=== PATIENT | male | born 1960 | race Caucasian/White ===

== ENCOUNTER 2018-09-10 23:10 | Inpatient (IN) | payer OTHER ==
[~2018-09-10] VITALS: Ht 178 cm; Wt 80.6 kg
[~2018-09-10 23:10] MED LIST: CLOP75 PO; LISI5 PO; SIMV10 PO
[2018-09-10 23:25] LABS: Calcium, Ionized (POC) 1.13 mmol/L (1.10-1.46); Chloride (POC) 104 mmol/L (98-108); Creatinine (POC) 0.9 mg/dL (0.8-1.3); Glucose (ISTAT POC) 144 mg/dL (70-99); Hemoglobin (POC) 17.3 g/dL (13.5-17.5); Potassium (POC) 3.7 mmol/L (3.5-5.5); Sodium (POC) 138 mmol/L (135-148); Total CO2 (POC) 22 mmol/L (21-32)
[2018-09-10 23:29] LABS: Hemoglobin 17.3 g/dL (13.5-17.5); Mean Corpuscular HGB 30.9 pg (26.0-34.0); Mean Corpuscular HGB Conc 33.9 g/dL (31.5-36.5); Mean Corpuscular Volume 91 fL (80-100); Mean Platelet Volume 9.4 fL (9.1-12.4); Platelet Count 289 K/mm3 (150-400); RDW Coefficient Variation 12.4 % (11.7-14.2); RDW Standard Deviation 41.3 fL (35.1-46.3); Red Blood Cell Count 5.59 M/mm3 (4.30-5.90); White Blood Cell Count 15.64 K/mm3 (4.00-11.30)
[2018-09-10] MEDS ORDERED: CARV6.25 (23:43)
[2018-09-10] MEDS ORDERED: METO25ER (23:43)
[2018-09-10 23:47] LABS: International Normalized Ratio 1.04
[2018-09-10 23:53] LABS: Alanine Aminotransfer (ALT/SGP 16 U/L (12-78); Albumin, Blood 3.8 g/dL (3.4-5.0); Alk Phos 83 U/L (50-136); Anion Gap 10 mmol/L (6-16); Aspartate Aminotrans (AST/SGOT 12 U/L (12-37); Bilirubin, Total 0.6 mg/dL (0.1-1.0); Blood Urea Nitrogen 14 mg/dL (8-24); Bun/Creatinine Ratio 14.5 (12.0-20.0); CHOL/HDL RATIO 3.5; CO2, Blood 23 mmol/L (21-32); Calcium, Blood 9.2 mg/dL (8.5-10.1); Chloride, Blood 106 mmol/L (98-108); Cholesterol 175 mg/dL (50-200); Creatinine, Blood 0.97 mg/dL (0.60-1.20); Globulin, Blood 3.8 g/dL (2.2-4.0); Glomerular Filtration Rate >60 (60-); Glucose, Blood 139 mg/dL (70-99); HDL Cholesterol 50 mg/dL (>39); LDL/HDL RATIO 1.9; Low Density Lipoprotein Chol 97 mg/dL (0-110); Potassium, Blood 3.7 mmol/L (3.5-5.5); Sodium, Blood 139 mmol/L (136-145); Total Protein, Blood 7.6 g/dL (6.4-8.2); Triglycerides 138 mg/dL (30-160); Troponin I 0.048 ng/mL (0.000-0.040); Very Low Density Lipoprot Chol 27 mg/dL (6-32)
--- NOTE | 2018-09-11 00:16 | NUR ---
ASSUMING CARE OF PT AT THIS TIME. PT REPORT RECEIVED VIA TELEPHONE WITH OFFGOING ED NURSE, HARRISON. PER HARRISON, PT TRANSFERRED TO [facility]. WAITING FOR PT TRANSFER FROM [facility] TO ICU AT THIS TIME.
--- NOTE | 2018-09-11 01:11 | NUR ---
PT TRANSFERRED FROM ED TO ICU AT THIS TIME.
--- NOTE | 2018-09-11 01:11 | NUR ---
PT TRANSFERRED FROM SPECIAL EFFECTS TECHNICIAN TO ICU AT THIS TIME.
[2018-09-11 02:19] LABS: Source, Urine Catheter
[2018-09-11 02:22] LABS: Bilirubin, Urine Neg (Neg); Blood, Urine 1+ (Neg); Glucose Qualitative, Urine Neg (Neg); Ketones, Urine Neg (Neg); Leukocyte Esterase, Urine 1+ (Neg); Nitrite, Urine Neg (Neg); Protein, Urine 2+ (Neg); Urobilinogen, Urine NORM (Normal)
[2018-09-11 02:30] LABS: Appearance, Urine Clear (Clear); Bacteria Rare /hpf; Color, Urine Yellow (P-Yellow); Red Blood Cells, Urine 0-2 /hpf (0-2); Squamous Epithelial Cells Not Seen /hpf (Few); White Blood Cells, Urine Rare /hpf (0-5)
--- NOTE | 2018-09-11 03:50 | NUR ---
ASSESSMENT / PT TRANSFER PT TRANSFERRED FROM [facility] TO ICU AT 0111. PT CALM WITH INCREASED SEDATION, AGITATION AND RESTLNESS AND PULLING ON LINES/CORDS/TUBES WITH DECREASED SEDATION, RESPONDS TO VERBAL AND PAINFUL STIMULI, OPENS EYES TO PRESSURE, DOES NOT NOD HEAD Y/N TO QUESTIONS, LOCALIZES PAIN, DOES NOT FOLLOW COMMANDS. CHIP SENSATION. PT HARRISON. NO WEAKNESS. NORMAL STRENGTH NOTED. PT IN BILAT WRIST RESTRAINTS TO PROTECT VITAL LINES/CORDS/TUBES AND TO PROTECT FROM SELF-EXTUBATION. NO S/SX OF PAIN/DISCOMFORT NOTED. PROPOFOL DRIP - TITRATED DRIP TO EFFECT. LUNGS COARSE, DIMINISHED LOWER LOBES. VENT SETTINGS: AC 16, TV 450, PEEP 5, FIO2 35%. OXY SAT >90%. RR 16 TO 30'S. INCREASED RR NOTED WITH AGITATION. SUCTION VIA ETT: LARGE AMOUNTS OF THIN CLEAR SECRETIONS. LARGE AMOUNTS OF ORAL SECRETIONS. TR BAND TO R RADIAL: NO HEMATOMA, NO REDNESS, NO BRUISING, NO TENDERNESS, SMALL AMOUNTS OF BLEEDING NOTED WITH PT AGITATION. TR BAND REMAINS INFLATED WTIH 10 ML. AFEBRILE. NSR WITH PAC'S. HR 80'S. BP STABLE - SEE VS FS. STRONG PULSES. WARM, PINK SKIN. NO EDEMA NOTED. ACTIVE BT X4 QUADRANTS. ABD SOFT, NONTNEDER, MILD DIST. NO N/V. OG PLACED BY MARYLIN GALINDO. OG TO LIS: SMALL AMOUNTS OF THIN LIGHT PINK SECRETIONS. UNKNOWN LAST BM. F/C PLACED BY MARYLIN GALINDO - DARK YELLOW URINE NOTED. UA SENT. PT'S SIGNICANT OTHER (STEPHY) DOES NOT KNOW PT'S MEDICATIONS. PIV X2. HEPARIN DRIP AT 13 UNITS/KG/HR AT A DOSING WEIGHT 80 KG (20.8 ML/HR). PT RE[facility]. PT REPORT PROVIDED TO FLIGHT NURSES FROM [facility]. PT TRANSFERRED BY [facility] AT 0340. CALLED MARYLIN JACQUES TO INFORM OF PT'S TRANSFER STATUS TO [place]. PT TRANSFERRED ON PROPOFOL DRIP AND HEPARIN DRIP.
== END 2018-09-11 03:45 | disposition short-term general hospital (02) | DRG 251 ==
LOC: ER 23:10 → ICUW 23:34 → ICUE 09-11 01:26
PROVIDERS: Emergency Medicine; Internal Medicine; ADMIT Emergency Medicine
PROC: 02C03ZZ Extirpation of Matter from Coronary Artery, One Artery, Percutaneous Approach (ICD-10-PCS; principal; 2018-09-10)
PROC: 02703ZZ Dilation of Coronary Artery, One Artery, Percutaneous Approach (ICD-10-PCS; 2018-09-10)
PROC: 4A023N7 Measurement of Cardiac Sampling and Pressure, Left Heart, Percutaneous Approach (ICD-10-PCS; 2018-09-10)
PROC: B2151ZZ Fluoroscopy of Left Heart using Low Osmolar Contrast (ICD-10-PCS; 2018-09-10)
PROC: B2161ZZ Fluoroscopy of Right and Left Heart using Low Osmolar Contrast (ICD-10-PCS; 2018-09-10)
PROC: 0BH17EZ Insertion of Endotracheal Airway into Trachea, Via Natural or Artificial Opening (ICD-10-PCS; 2018-09-10)
PROC: 5A1935Z Respiratory Ventilation, Less than 24 Consecutive Hours (ICD-10-PCS; 2018-09-10)
DX: I21.19 ST elevation (STEMI) myocardial infarction involving other coronary artery of inferior wall (principal); I10 Essential (primary) hypertension; F17.210 Nicotine dependence, cigarettes, uncomplicated; Z95.5 Presence of coronary angioplasty implant and graft; I25.2 Old myocardial infarction
CPT/HCPCS: 31500; 36415; 51702; 80047; 80053; 80061; 81001; 83735; 84484; 85014; 85027; 85347; 85610; 85730; 86850; 86900; 86901; 87086; 92941; 93005; 93010; 93458; 94002; 96374; 99152; 99153; 99285-25; C1725; C1757; C1769; C1887; C1894; J1644; J2250; J3010; J3246; J7030; Q9967

== ENCOUNTER 2019-09-15 20:07 | Emergency (ER) | payer OTHER ==
[~2019-09-15] VITALS: Ht 172.7 cm; Wt 83.9 kg
[~2019-09-15 20:07] MED LIST changes: +ASPI81CH PO; +CARV6.25 PO; +METO25ER PO; -SIMV10 PO; +ZOCOR40 MG PO
[2019-09-16] LABS: BASOPHILS ABSOLUTE AUTO 0.03 K/mm3 (0.00-0.23); BASOPHILS PERCENT AUTO 0 % (0-2); EOSINOPHILS ABSOLUTE AUTO 0.17 K/mm3 (0.00-0.68); EOSINOPHILS PERCENT AUTO 2 % (0-6); Hematocrit 46.9 % (37.0-53.0); Hemoglobin 15.8 g/dL (13.5-17.5); IMMATURE GRAN ABSOLUTE AUTO 0.02 K/mm3 (0.00-0.10); IMMATURE GRAN PERCENT AUTO 0 % (0-1); LYMPHOCYTES PERCENT AUTO 32 % (21-46); MONOCYTES ABSOLUTE AUTO 0.81 K/mm3 (0.16-1.47); MONOCYTES PERCENT AUTO 9 % (4-13); Mean Corpuscular HGB 31.1 pg (26.0-34.0); Mean Corpuscular HGB Conc 33.7 g/dL (31.5-36.5); Mean Corpuscular Volume 92 fL (80-100); NEUTROPHILS ABSOLUTE AUTO 5.38 K/mm3 (1.96-9.15); NEUTROPHILS PERCENT AUTO 57 % (41-73); Platelet Count 227 K/mm3 (150-400); RDW Coefficient Variation 13.2 % (11.7-14.2); RDW Standard Deviation 44.9 fL (35.1-46.3); Red Blood Cell Count 5.08 M/mm3 (4.30-5.90); White Blood Cell Count 9.41 K/mm3 (4.00-11.30)
[2019-09-16 00:22] LABS: Alanine Aminotransfer (ALT/SGP 18 U/L (12-78); Albumin, Blood 3.2 g/dL (3.4-5.0); Albumin/Globulin Ratio 0.9 (0.8-1.8); Alk Phos 79 U/L (50-136); Anion Gap 7 mmol/L (6-16); Aspartate Aminotrans (AST/SGOT 11 U/L (12-37); Bilirubin, Total 0.6 mg/dL (0.1-1.0); Blood Urea Nitrogen 9 mg/dL (8-24); CO2, Blood 27 mmol/L (21-32); Calcium, Blood 8.7 mg/dL (8.5-10.1); Chloride, Blood 108 mmol/L (98-108); Creatinine, Blood 0.82 mg/dL (0.60-1.20); Globulin, Blood 3.4 g/dL (2.2-4.0); Glomerular Filtration Rate >60 (60-); Glucose, Blood 116 mg/dL (70-99); Potassium, Blood 3.7 mmol/L (3.5-5.5); Sodium, Blood 142 mmol/L (136-145); Total Protein, Blood 6.6 g/dL (6.4-8.2); Troponin I <0.015 ng/mL (0.000-0.040)
== END 2019-09-16 01:43 | disposition home or self-care (01) ==
LOC: ER 20:07
PROVIDERS: Emergency Medicine
DX: S20.211A Contusion of right front wall of thorax, initial encounter (principal); I10 Essential (primary) hypertension; I25.2 Old myocardial infarction; F17.200 Nicotine dependence, unspecified, uncomplicated; Z95.1 Presence of aortocoronary bypass graft; Z79.82 Long term (current) use of aspirin; Z79.899 Other long term (current) drug therapy; V89.2XXA Person injured in unspecified motor-vehicle accident, traffic, initial encounter
CPT/HCPCS: 71046; 71260; 74177; 80053; 83690; 84484; 85025; 93005; 93010; 96374-59; 99284-25; J3010; Q9967

== ENCOUNTER 2020-08-18 14:04 | Inpatient (IN) | payer OTHER ==
[~2020-08-18] VITALS: Ht 175.3 cm; Wt 80.0 kg
[~2020-08-18 14:04] MED LIST changes: -LISI5 PO
[2020-08-18 14:32] LABS: BASOPHILS ABSOLUTE AUTO 0.03 K/mm3 (0.00-0.23); BASOPHILS PERCENT AUTO 0 % (0-2); EOSINOPHILS ABSOLUTE AUTO 0.21 K/mm3 (0.00-0.68); EOSINOPHILS PERCENT AUTO 3 % (0-6); Hematocrit 51.8 % (37.0-53.0); Hemoglobin 17.3 g/dL (13.5-17.5); IMMATURE GRAN ABSOLUTE AUTO 0.01 K/mm3 (0.00-0.10); IMMATURE GRAN PERCENT AUTO 0 % (0-1); LYMPHOCYTES PERCENT AUTO 33 % (21-46); MONOCYTES PERCENT AUTO 9 % (4-13); Mean Corpuscular HGB 31.3 pg (26.0-34.0); Mean Corpuscular HGB Conc 33.4 g/dL (31.5-36.5); Mean Corpuscular Volume 94 fL (80-100); Mean Platelet Volume 9.9 fL (9.1-12.4); NEUTROPHILS ABSOLUTE AUTO 3.74 K/mm3 (1.96-9.15); NEUTROPHILS PERCENT AUTO 54 % (41-73); Platelet Count 226 K/mm3 (150-400); RDW Coefficient Variation 12.9 % (11.7-14.2); RDW Standard Deviation 44.7 fL (35.1-46.3); Red Blood Cell Count 5.52 M/mm3 (4.30-5.90); White Blood Cell Count 6.89 K/mm3 (4.00-11.30)
[2020-08-18 14:45] LABS: Alanine Aminotransfer (ALT/SGP 19 U/L (12-78); Albumin, Blood 3.4 g/dL (3.4-5.0); Albumin/Globulin Ratio 0.9 (0.8-1.8); Alk Phos 86 U/L (50-136); Anion Gap 8 mmol/L (6-16); Aspartate Aminotrans (AST/SGOT 16 U/L (12-37); Bilirubin, Total 1.1 mg/dL (0.1-1.0); Blood Urea Nitrogen 12 mg/dL (8-24); Bun/Creatinine Ratio 17.1 (12.0-20.0); CO2, Blood 21 mmol/L (21-32); Calcium, Blood 8.8 mg/dL (8.5-10.1); Chloride, Blood 110 mmol/L (98-108); Globulin, Blood 3.7 g/dL (2.2-4.0); Glomerular Filtration Rate >60 (60-); Glucose, Blood 150 mg/dL (70-99); Potassium, Blood 3.7 mmol/L (3.5-5.5); Sodium, Blood 139 mmol/L (136-145); Total Protein, Blood 7.1 g/dL (6.4-8.2)
[2020-08-18 14:47] LABS: International Normalized Ratio 1.01; Prothrombin Time Results 10.8 Sec (9.7-11.5)
[2020-08-18] MEDS ORDERED: METO50ER PO (16:09)
[2020-08-18] MEDS ORDERED: ATORVASTATIN CA40 MG PO (16:09)
[2020-08-18] MEDS ORDERED: LISI5 PO (16:09)
[2020-08-18] MEDS ORDERED: OMEP20ER PO (16:10)
--- NOTE | 2020-08-18 16:47 | NUR ---
RECIEVED REPORT FROM CHIO WOLFF RN, @ 1953. PATIENT TO TRANSFER TO ROOM 356.
--- NOTE | 2020-08-18 18:10 | NUR ---
PATIENT ARRIVED TO ROOM 356 @ 1705 AND TRANSFERED INDEPENDENTLY FROM STRETCHER TO HOSPITAL BED. STRENGTH & MOSS GATHERER ARE EQUAL TO UPPER AND LOWER EXTREMETIES. DENIES PAIN AND DISCOMFORT. BIGGEST DIFFICULTY PATIENT SEEMS TO HAVE IS WITH HIS SPEECH HOWEVER THE SLOWER AND MORE TIME HE GIVES HIMSELF TO VERBALIZE HIMSELF, THE MORE HE IS ABLE TO SAY WHAT HE WANTS TO SAY. PLEASANT AND COOPERATIVE WITH STAFF. ALERT AND ORIENTED. INDEPENDENT IN ROOM. ADMISSION ASSESSMENT, H&P AND MED REC COMPLETED WITH THE PATIENTS ASSISTANCE AND COOPERATION. CALL LIGHT WITHIN REACH.
--- NOTE | 2020-08-18 19:17 | NUR ---
AWAKE. SMILING. IV FLUSHED FOR TESTING - SEE DOCUMENTATION. CALL LIGHT IN REACH
--- NOTE | 2020-08-19 03:04 | NUR ---
SHIFT SUMMARY NEURO CHECKS DONE ABOUT EVERY 4 HRS THIS SHIFT. NOTED RIGHT FACIAL DROOP AT 1999 ASSESSMENT WITH GARBLED SPEECH, BUT NO NOTED DEFICEIT BETWEEN RIGHT AND LEFT ODD JOB LABORER OF DORSI/PLANTAR FLEXION. HAD BEEN RSTING QUIETLY UNTIL AROUND 2329, ND STARTED CRYING - VOICED PAIN OF LOWER EXT "KNEES DOWN". RUBBER PRODUCTION MACHINE OPERATOR NOTIFIED, DILAUDID IV ORDERED. RECEIVED INITIAL DOSE AND HAS BEEN RSETING QUIETLY SINCE. CALL LIGHT IN REACH. IVF INFUSING ORDERED
--- NOTE | 2020-08-19 10:39 | NUR ---
VTACH PT HAD 22 BEATS RUNS OF VTACH; AT BEDSIDE AND AWARE. PT DENIES CP AND ASYMPTOMATIC
--- NOTE | 2020-08-19 16:25 | NUR ---
SHIFT SUMMARY PT ALERT ORIENTED; CALLS APPROPRIATELY, BUT VERY GARBLED SPEECH AND SLOW TO RESPOND. PT HAS DIFFICULTY SPEAKING; BUT ABLE TO WRITE AND COMMUNICATE PER SPEECH THERAPIST. PT HAS NO DIFFICULTY SWALLOWING. PT AWAITS FOR MRI AT THIS TIME. PT HAD RUNS OF VTACH OF 22 BEATS THIS AM; AWARE AND PT ASYMPTOMATIC. PT IS STANDBY ASSIST AND NO DIFFICULTY WALKING. BED IS IN THE LOWEST POSITION AND CALL LIGHT WITHIN REACH.
--- NOTE | 2020-08-19 20:54 | NUR ---
ASSUMED CARE. AOX3, MILD RIGHT FACIAL DROOP, TONGUE CENTERED. NO DROOLING. COMMUNICATIONS SPECIALIST EQUAL AND STRONG. BLE HAVE GOOD ROM, NO DEFICITS. SPEECH IS GARBLED IF HE TALKS FAST OR IS ANXIOUS. IF HE SLOWS DOWN HE IS ABLE TO FORM WORDS CLEARLY. DENIES PAIN AT THIS TIME. VS SHOWED SLIGHT ELEVATION IN BP. DENIES SANTOS OR NUMBNESS. NO CONCERNS TO NOTE. CALL LIGHT IS IN REACH.
[2020-08-20 05:23] LABS: BASOPHILS ABSOLUTE AUTO 0.04 K/mm3 (0.00-0.23); BASOPHILS PERCENT AUTO 1 % (0-2); EOSINOPHILS ABSOLUTE AUTO 0.29 K/mm3 (0.00-0.68); EOSINOPHILS PERCENT AUTO 4 % (0-6); Hematocrit 49.5 % (37.0-53.0); Hemoglobin 16.2 g/dL (13.5-17.5); IMMATURE GRAN ABSOLUTE AUTO 0.02 K/mm3 (0.00-0.10); IMMATURE GRAN PERCENT AUTO 0 % (0-1); LYMPHOCYTES ABSOLUTE AUTO 2.16 K/mm3 (0.84-5.20); LYMPHOCYTES PERCENT AUTO 29 % (21-46); MONOCYTES ABSOLUTE AUTO 0.67 K/mm3 (0.16-1.47); MONOCYTES PERCENT AUTO 9 % (4-13); Mean Corpuscular HGB 31.3 pg (26.0-34.0); Mean Corpuscular HGB Conc 32.7 g/dL (31.5-36.5); Mean Corpuscular Volume 96 fL (80-100); Mean Platelet Volume 10.4 fL (9.1-12.4); NEUTROPHILS ABSOLUTE AUTO 4.25 K/mm3 (1.96-9.15); NEUTROPHILS PERCENT AUTO 57 % (41-73); Platelet Count 210 K/mm3 (150-400); RDW Coefficient Variation 12.8 % (11.7-14.2); RDW Standard Deviation 45.8 fL (35.1-46.3); Red Blood Cell Count 5.18 M/mm3 (4.30-5.90); White Blood Cell Count 7.43 K/mm3 (4.00-11.30)
[2020-08-20 05:48] LABS: Anion Gap 5 mmol/L (6-16); Blood Urea Nitrogen 12 mg/dL (8-24); CO2, Blood 25 mmol/L (21-32); Calcium, Blood 8.8 mg/dL (8.5-10.1); Chloride, Blood 110 mmol/L (98-108); Creatinine, Blood 0.92 mg/dL (0.60-1.20); Glomerular Filtration Rate >60 (60-); Glucose, Blood 98 mg/dL (70-99); Magnesium, Blood 2.3 mg/dL (1.6-2.4); Sodium, Blood 140 mmol/L (136-145)
--- NOTE | 2020-08-20 06:12 | NUR ---
SHIFT SUMMARY: AOX3, APHASIA, MILD RIGHT SIDE DROOP. NO OTHER NEURO DEFICITS. HE IS ABLE TO FORM WORDS CLEARLY LONG HE SPEAKS SLOW. NO TROUBLE SWALLOWING OR EATING. VS WITH SLIGHT ELEVATION IN BP TO 166/82 BUT THEN CAME RIGHT BQACK DOWN. TELE RAN SINUS ALL EVENING. STILL HAS NOT HAD MRI, POSSIBLY TODAY. CHRONIC PAIN IN HIS LEFT KNEE T/O PREVIOUS SURGERY. DOES NOT TAKE PAIN MEDS AT HOME DUE TO [facility]. ENCOURAGED TO MAKE APPT. NO OTHER CHANGES TO NOTE. SLEPT WELL TONIGHT. CALL LIGHT REMAINED IN REACH.
[2020-08-20] MEDS ORDERED: Aspir 8181 MG PO (17:15)
[2020-08-20] MEDS ORDERED: Nicoderm Cq1 EAC1 TOP (17:16)
--- NOTE | 2020-08-20 18:25 | NUR ---
PATIENT DISCHARGE: PATIENT DISCHARGED TO HOME THIS SHIFT. MEDEICATION RECONCILIATION COMPLETED; MED LIST FAXED TO [facility] IN [place]. DISCHARGE EDUCATION COMPLETED WITH PATIENT. PATIENT TRANSPORTED TO EXIT BY [facility] STAFF WITH WHEELCHAIR AT 1817. PATIENT DEPARTED [facility] VIA PRIVATE AUTO.
--- NOTE | 2020-08-20 18:59 | NUR ---
PATIENT DISCHARGE: PATIENT DISCHARGED TO HOME THIS SHIFT. MEDICATION REWCONCILIATION COMPLETED; MED LIST FAXED TO [facility] [place]. DISCHARGE EDUCATION COMPLETED WITH PATIENT AND FAMILY. PATIENT TRANSPORTED TO EXIT BY [facility] STAFF WITH WHEELCHAIR AT 1855. PATIENT DEPARTED [facility] VIA PRIVATE AUTO.
== END 2020-08-20 18:17 | disposition home or self-care (01) | DRG 66 ==
LOC: ER 14:04 → MEDS 14:05
PROVIDERS: Emergency Medicine; ADMIT Internal Medicine
PROC: 3E0234Z Introduction of Serum, Toxoid and Vaccine into Muscle, Percutaneous Approach (ICD-10-PCS; principal; 2020-08-18)
DX: I63.9 Cerebral infarction, unspecified (principal); I25.10 Atherosclerotic heart disease of native coronary artery without angina pectoris; I10 Essential (primary) hypertension; Z23 Encounter for immunization; J44.9 Chronic obstructive pulmonary disease, unspecified; E78.5 Hyperlipidemia, unspecified; F17.210 Nicotine dependence, cigarettes, uncomplicated; R13.10 Dysphagia, unspecified; Z95.1 Presence of aortocoronary bypass graft; I25.2 Old myocardial infarction
CPT/HCPCS: 36415; 70450; 80048; 80053; 82947; 83735; 85025; 85610; 85730; 92523; 93005; 93010; 93306; 93880; 96365; 96366; 96372; 96375; 96376; 99285-25; A9270; G0008; G0378; J1170; J1650; J3475; J3480; Q2038

== ENCOUNTER 2020-10-14 20:29 | Emergency (ER) | payer OTHER ==
[~2020-10-14] VITALS: Ht 175.3 cm; Wt 81.7 kg
[~2020-10-14 20:29] MED LIST changes: +ATORVASTATIN CA40 MG PO; +Aspir 8181 MG PO; +LISI5 PO; +METO50ER PO; +Nicoderm Cq1 EAC1 TOP; +OMEP20ER PO
== END 2020-10-14 23:34 | disposition home or self-care (01) ==
LOC: ER 20:29
DX: R25.1 Tremor, unspecified (principal); I10 Essential (primary) hypertension; I25.2 Old myocardial infarction; Z79.899 Other long term (current) drug therapy; Z79.82 Long term (current) use of aspirin
CPT/HCPCS: 36415; 70450; 93005; 93010; 99284-25

== ENCOUNTER 2021-02-15 17:02 | Emergency (ER) | payer OTHER ==
[~2021-02-15] VITALS: Ht 175.3 cm; Wt 81.7 kg
[2021-02-15 18:07] LABS: BASOPHILS ABSOLUTE AUTO 0.03 K/mm3 (0.00-0.23); BASOPHILS PERCENT AUTO 0 % (0-2); EOSINOPHILS ABSOLUTE AUTO 0.33 K/mm3 (0.00-0.68); EOSINOPHILS PERCENT AUTO 4 % (0-6); Hematocrit 45.1 % (37.0-53.0); Hemoglobin 14.9 g/dL (13.5-17.5); IMMATURE GRAN ABSOLUTE AUTO 0.01 K/mm3 (0.00-0.10); IMMATURE GRAN PERCENT AUTO 0 % (0-1); LYMPHOCYTES ABSOLUTE AUTO 2.59 K/mm3 (0.84-5.20); LYMPHOCYTES PERCENT AUTO 31 % (21-46); MONOCYTES ABSOLUTE AUTO 0.92 K/mm3 (0.16-1.47); MONOCYTES PERCENT AUTO 11 % (4-13); Mean Corpuscular HGB 31.8 pg (26.0-34.0); Mean Corpuscular Volume 96 fL (80-100); Mean Platelet Volume 10.8 fL (9.1-12.4); NEUTROPHILS ABSOLUTE AUTO 4.57 K/mm3 (1.96-9.15); NEUTROPHILS PERCENT AUTO 54 % (41-73); Platelet Count 250 K/mm3 (150-400); RDW Coefficient Variation 13.4 % (11.7-14.2); RDW Standard Deviation 47.5 fL (35.1-46.3); Red Blood Cell Count 4.68 M/mm3 (4.30-5.90); White Blood Cell Count 8.45 K/mm3 (4.00-11.30)
[2021-02-15 18:46] LABS: Alanine Aminotransfer (ALT/SGP 44 U/L (12-78); Albumin, Blood 3.5 g/dL (3.4-5.0); Albumin/Globulin Ratio 0.9 (0.8-1.8); Alk Phos 88 U/L (50-136); Anion Gap 4 mmol/L (6-16); Aspartate Aminotrans (AST/SGOT 19 U/L (12-37); Bilirubin, Total 0.4 mg/dL (0.1-1.0); Blood Urea Nitrogen 11 mg/dL (8-24); Bun/Creatinine Ratio 11.8 (12.0-20.0); CO2, Blood 29 mmol/L (21-32); Calcium, Blood 9.1 mg/dL (8.5-10.1); Chloride, Blood 107 mmol/L (98-108); Creatinine, Blood 0.93 mg/dL (0.60-1.20); Globulin, Blood 4.1 g/dL (2.2-4.0); Glomerular Filtration Rate >60 (60-); Glucose, Blood 119 mg/dL (70-99); Potassium, Blood 4.2 mmol/L (3.5-5.5); Sodium, Blood 140 mmol/L (136-145); Total Protein, Blood 7.6 g/dL (6.4-8.2)
[2021-02-15] MEDS ORDERED: CEPH500 PO (21:27)
== END 2021-02-15 21:54 | disposition home or self-care (01) ==
LOC: ER 17:02
PROVIDERS: Physician Assistant
DX: Z48.01 Encounter for change or removal of surgical wound dressing (principal); I10 Essential (primary) hypertension; Z79.899 Other long term (current) drug therapy
CPT/HCPCS: 36415; 80053; 85025; 93880; 99284-25

== ENCOUNTER 2021-10-30 12:43 | Inpatient (IN) | payer OTHER ==
[~2021-10-30] VITALS: Ht 175.3 cm; Wt 79.3 kg
[~2021-10-30 12:43] MED LIST changes: +ALBU90OI INH; +CEPH500 PO
[2021-10-30 13:08] LABS: BASOPHILS ABSOLUTE AUTO 0.02 K/mm3 (0.00-0.23); BASOPHILS PERCENT AUTO 0 % (0-2); EOSINOPHILS PERCENT AUTO 0 % (0-6); Hematocrit 41.3 % (37.0-53.0); IMMATURE GRAN ABSOLUTE AUTO 0.02 K/mm3 (0.00-0.10); IMMATURE GRAN PERCENT AUTO 0 % (0-1); LYMPHOCYTES ABSOLUTE AUTO 1.21 K/mm3 (0.84-5.20); LYMPHOCYTES PERCENT AUTO 16 % (21-46); MONOCYTES ABSOLUTE AUTO 0.63 K/mm3 (0.16-1.47); MONOCYTES PERCENT AUTO 8 % (4-13); Mean Corpuscular HGB 30.8 pg (26.0-34.0); Mean Corpuscular HGB Conc 33.9 g/dL (31.5-36.5); Mean Corpuscular Volume 91 fL (80-100); Mean Platelet Volume 11.2 fL (9.1-12.4); NEUTROPHILS ABSOLUTE AUTO 5.94 K/mm3 (1.96-9.15); NEUTROPHILS PERCENT AUTO 76 % (41-73); Platelet Count 245 K/mm3 (150-400); RDW Standard Deviation 42.6 fL (35.1-46.3); Red Blood Cell Count 4.54 M/mm3 (4.30-5.90); White Blood Cell Count 7.82 K/mm3 (4.00-11.30)
[2021-10-30 13:25] LABS: International Normalized Ratio 1.12; Prothrombin Time Results 11.7 Sec (9.7-11.5)
[2021-10-30 13:30] LABS: Alanine Aminotransfer (ALT/SGP 17 U/L (12-78); Albumin, Blood 2.7 g/dL (3.4-5.0); Albumin/Globulin Ratio 0.6 (0.8-1.8); Alk Phos 82 U/L (50-136); Anion Gap 7 mmol/L (6-16); Aspartate Aminotrans (AST/SGOT 11 U/L (12-37); Bilirubin, Total 1.3 mg/dL (0.1-1.0); Blood Urea Nitrogen 9 mg/dL (8-24); Bun/Creatinine Ratio 12.5 (12.0-20.0); CO2, Blood 27 mmol/L (21-32); Calcium, Blood 9.2 mg/dL (8.5-10.1); Chloride, Blood 102 mmol/L (98-108); Creatinine, Blood 0.72 mg/dL (0.60-1.20); Ethanol (Alcohol), Blood, Med <3 mg/dL; Globulin, Blood 4.6 g/dL (2.2-4.0); Glomerular Filtration Rate >60 (60-); Glucose, Blood 140 mg/dL (70-99); Potassium, Blood 3.6 mmol/L (3.5-5.5); Sodium, Blood 136 mmol/L (136-145); Total Protein, Blood 7.3 g/dL (6.4-8.2)
[2021-10-30] MEDS ORDERED: Aspir 8181 MG PO (18:36)
--- NOTE | 2021-10-30 18:38 | NUR ---
SHIFT SUMMARY: PT ADMITTED TO 336 AT 1805. REPORT RECEIVED FROM MARIA DEL CARMEN COULTER. PT ALERT ANSWERS QUESTIONS APPROPRIATELY. PT ORIENTED TO ROOM, CALL LIGHT. BED ALARM ON. PT NPO, IV FLUIDS NS AT 50 STARTED.
[2021-10-30 20:47] LABS: U Amphetamine Screen DETECTED; U Barbituate Screen Not Detected; U Benzodiazapine Screen Not Detected; U Buprenorphine Screen Not Detected; U Cannabinoids Screen DETECTED; U Cocaine Screen Not Detected; U Methadone Screen Not Detected; U Methamphetamine Screen DETECTED; U Opiates Screen DETECTED; U Oxycodone Screen Not Detected; U Phencyclidine Screen Not Detected; U Propoxyphene Screen Not Detected
--- NOTE | 2021-10-31 00:13 | NUR ---
NAUSEATED/EMOTIONAL *LATE ENTRY* PT NAUSEATED, DRY HEAVING, HAS HICCUPS, REPORTS BURNING SENSATION IN THROAT. STATES HE HASNT EATEN IN 2 DAYS BECAUSE HE'S BEEN NAUSEOUS & VOMITING ANYTIME HE TRYS TO EAT OR DRINK SOMETHING. I NOTICED PT WAS GIVEN 20MG IV PROTONIX ON DAY SHIFT. INFORMED DR MCKINLEY & SHE ORDERED ZOFRAN & 1X DOSE GI COCKTAIL, GAVE MEDS & PT REPORTED RELIEF AFTER. U-TOX + METH, ASKED PT WHEN HE LAST USED METH-REPORTS ROUGHLY 1 WK AGO. ASKED IF BEFORE OR AFTER CVA SYMPTOMS STARTED & HE STATED "DURING." PT STATES HIS 4 YR OLD SON OF PNEUMONIA ROUGHLY 31 YRS AGO & IT'S BEEN ROUGH/PAINFUL FOR HIM BECAUSE HE THINKS OF HIS SON DAILY & HAS USED METH SINCE OF SON. PT TEARFUL & EMOTIONAL, ENCOURAGED THERAPEUTIC COMMUNICATION. WILL CONT TO MONITOR.
--- NOTE | 2021-10-31 06:12 | NUR ---
SHIFT SUMMARY ADMITTED FOR CVA. AOX4. ANSWERS ORIENTATION QUESTIONS CORRECTLY, FOLLOWS DIRECTIONS. FORGETFUL & IMPULSIVE. GARBLED SPEECH. SLOW TO RESPOND. L FACIAL DROOP. L ARM WEAK & L HAND SENIOR MEDIA BUYER WEAK, PT FAVORS RIGHT SIDE WITH SIGHT, DENIES ANY BLURRY VISION & CAN APPROPRIATELY DISTINGUISH HOW MANY FINGERS HELD UP. VSS. TELE NSR HR 90-100. REPORTS HEADACHE ON/OFF T/O NIGHT. REPORTS NAUSEA T/O NIGHT ALONG c DRY HEAVING, MEDICATED 2X c ZOFRAN, 1X c REGLAN & 1X c GI COCKTAIL FOR ACID REFLUX/HEARTBURN. REPORTED SEEING "WHITE SPIDERS, HANGING FROM TV," NO SPIDERS SEEN BY THIS NURSE, PT HAVING VISUAL HALLUCINATIONS. REPORTS LAST DAY HE USED METH WAS ROUGHLY 1 WEEK AGO. PLAN TO HAVE SPEECH EVAL TODAY. CALL LIGHT & BED ALARM IN PLACE.
--- NOTE | 2021-10-31 19:26 | NUR ---
SHIFT SUMMARY: PT A/O X 3 ONE PERSON ASSIST WITH GAIT BELT AND WALKER. PT HAS L SIDED DEFICITS BUT ABLE TO STAND WITHOUT ASSISTANCE. NEEDS GUIDANCE WITH AMBULATION. PT ABLE TO FOLLOW QUES. PT HAS SLURRED SPEECH BUT ABLE TO WRITE DIRECTIONS IF UNABLE TO BE UNDERSTOOD. PT HAD NO DIFFICULTIES SWALLOWING FOOD TODAY. PT DOES HAVE DROOLING AND HAS THICK CLEAR SPUTUM HE COUGHS UP OCCASIONALLY. PT HAD L HIP PAIN DURING PT THERAPY. TYLENOL ORDERED FOR HIS PAIN. PT DID NOT HAVE ANY SYMPTOMS OF NAUSEA. HE WAS PLEASANT AND COOPERATIVE WITH CARES. PT SON CAME TO VISIT AND PT ADDED HIS SON'S GIRLFRIEND SHUN TO EMERGENCY CONTACTS.
--- NOTE | 2021-11-01 06:19 | NUR ---
SHIFT SUMMARY AOX3. ANSWERS ORIENTATION QUESTIONS. SLURRED GARBLED SPEECH, DIFFICULT TO UNDERSTAND. IMPULSIVE. FORGETFUL. L FACIAL DROOP. L HAND FIELD SERVICER WEAKER THEN R, PT NEGLECTS L ARM. VSS. TELE NSR HR 80'S. DENIES N/V, DYSPNEA, N/T OR VISION CHANGES. REPORTED SANTOS, MEDICATED 1X c TYLENOL & STATED RELIEF. HAD DIFFICULTY SLEEPING, RESTLESS, INFORMED DR BREEN & HE ORDERED MELATONIN & PT ABLE TO REST WELL A FEW HOURS AFTER MEDICATION. BED ALARM IN PLACE & CALL LIGHT IN REACH. WCTM.
--- NOTE | 2021-11-01 19:36 | NUR ---
SHIFT SUMMARY: PT A/O X 4 ONE ASSIST. PT HAS HAD HICCUPS OFF AND ON TODAY. PT STARTED HAVING SYMPTOMS AFTER RECEIVING IV PROTONIX WITH SYMPTOMS OF NAUSEA AND WRETCHING. REGLAN RESOLVED N/V AND HICCUPS THIS AM. PT REPORTS L HIP PAIN AND BASE OF NECK PAIN. TYLENOL IS EFFECTIVE IN TREATING PAIN AT THIS TIME. PT UP IN CHAIR TODAY FOR MEALS. CONTINUES TO HAVE LEFT SIDED DEFICITS.
--- NOTE | 2021-11-02 07:17 | NUR ---
PM SHIFT SUMMARY PATIENT FORGETS HE HAS CONTINUOUS IV FLUIDS RUNNING AND HAD 2 IV'S COME OUT DURING THE SHIFT. NEW IV IS NOW IN RIGHT WRIST, WITH IV POLE ON THAT SIDE OF THE BED. HE WAS ABLE TO STAND WITH WALKER, BUT ABSOLUTELY REQUIRED ASSISTANCE TO PIVOT AND TURN TO CHAIR DURING COMPLETE BED CHANGE - HE IS VERY UNSTEADY. HE ATTMEPTED TO SPEAK WITH ME THROUGHOUT THE SHIFT A FEW TIMES, BUT IT IS DIFFICULT TO UNDERSTAND EVERYTHING HE IS SAYING. I MADE SURE TO ASSESS PAIN LEVELS AND HE DID STATE "NO" WHEN ASKED ABOUT PAIN. HE DID MENTION HIS SON A FEW TIMES, WHOM HE SAYS WILL BE VISITING TODAY. PLAN IS FOR PT/OT/ST TO WORK WITH HIM, THE DOCTORS AT THE [facility] SAY NO FURTHER WORK-UP IS NEEDED. EVENTUAL PLAN IS TO GET HIM TO A SNF.
--- NOTE | 2021-11-02 18:41 | NUR ---
SHIFT SUMMARY PT AXO X3 THOUGH DIFFICULT TO UNDERSTAND AT TIMES. HE HAS BEEN ASKING FOR HIS SIGNIFICANT OTHER AND STATING THAT SHE WAS HERE BUT SHE HAS NOT BEEN IN THIS SHIFT. PT WORKED WITH PHYSICAL AND OCCUPATIONAL THERAPY, SEE NOTES. VSS. IV PATENT AND SALINE LOCKED. BED IN LOW POSITION, CALL LIGHT WITHIN REACH, BED ALARM ON. PT DENIES PAIN, SOB. WAS MEDICATED FOR NAUSEA X1 PER EMAR AFTER HE WAS SITTING ON SIDE OF BED SPITTING INTO THE TRASH CAN COMPLAINING OF HICCUPS. NO OTHER CHANGES THIS SHIFT.
--- NOTE | 2021-11-03 06:32 | NUR ---
PM SHIFT SUMMARY PATIENT COMPLAINED OF NAUSEA AND SOME MILD LEG PAIN EARLY THIS MORNING - REGLAN AND TYLENOL GIVEN PER EMAR WITH RESOLUTION OF SYMPTOMS. HE STILL HAS GAIT ABNORMALITY, LEFT HAND WEAKNESS AND SLURRED SPEECH. NE NEUROLOGY WANTS HIM TO BE STARTED ON PLAVIX AGAIN AND CONTINUE TO SEE PT/OT/ST; THEY DO NOT FEEL ANY FURHTER WORKUP IS NEEDED. HE SITS UP TO SIDE OF BED ON HIS OWN, BUT DOES NOT ATTMEPT TO GET OUT OF BED WITHOUT US. HE AMBULATED TO THE RESTROOM WITH HIS WALKER AND ASSISTANCE FROM STAFF. HE IS AWAITING PLACEMENT AT A SNF.
--- NOTE | 2021-11-03 18:41 | NUR ---
SHIFT SUMMARY PT A&O X4 AND IN PLEASENT MOOD T/O SHIFT. WORKED W/ PT TODAY, FRIEND BROUGHT IN PT'S FA CRUTCHES AND KNEE BRACE. PT AMBULATED IN HALLWAY, FAIRLY STEADY GAIT W/ LEFT SIDES WEAKNESS NOTED. VSS. CALL LIGHT W/IN REACH. PT C/O INDIGESTION, MEDICATED PER EMAR.
--- NOTE | 2021-11-04 03:26 | NUR ---
SHIFT SUMMARY: A/OX3, PATIENT RESTED COMFORTABLE THROUGHOUT THE SHIFT. HAD AN EPISODE OF NAUSEA & HEADACHE- RELIEVED WITH ZOFRAN AND ACETAMINOPHEN. PT INDEPENDETLY REPOSITIONS SELF. BED ALARM ACTIVATED DUE TO PT FORGETTING LIMITATIONS AND LEFT SIDE WEAKNESS. BED IN LOW POSITION, CALL CARTAGENA IN REACH.
--- NOTE | 2021-11-04 16:22 | NUR ---
SHIFT SUMMARY PT A&O X4 AND IN PLEASENT MOOD T/O SHIFT. PLAN TO AMBULATE IN [place]. NAUSEA MEDICATED PER EMAR. TOLERATING PO INTAKE WELL, THOUGH PT DOES C/O FREQUENT HICK UPS. VSS. CALL LIGHT W/IN REACH. RESTED COMFORTABLY IN BED T/O SHIFT, UP FOR MEALS. ENJOYED WATCHING T.V.
--- NOTE | 2021-11-05 02:28 | NUR ---
SHIFT SUMMARY: CONTINUED A/OX3-DELAYED RESPONSES. PT VERY RESTLESS TONIGHT. EPISODE OF NAUSEA & DRY HEAVING UNRELIEVED WITH ZOFRAN- POST ADMINISTRATION OF REGLAN PATIENT WAS ABLE TO GET RELIEF. ONCE NAUSEA RELIEVED PATIENT ABLE TO TOLERATE PO MEDICATIONS. BED ALARM REMAINED ACTIVATED, BED IN LOW POSITION, CALL CARTAGENA AND BELONGINGS IN REACH.
[2021-11-05 04:34] LABS: Anion Gap 7 mmol/L (6-16); Blood Urea Nitrogen 13 mg/dL (8-24); Bun/Creatinine Ratio 19.1 (12.0-20.0); CO2, Blood 26 mmol/L (21-32); Chloride, Blood 103 mmol/L (98-108); Creatinine, Blood 0.68 mg/dL (0.60-1.20); Glomerular Filtration Rate >60 (60-); Glucose, Blood 104 mg/dL (70-99); Potassium, Blood 3.4 mmol/L (3.5-5.5); Sodium, Blood 136 mmol/L (136-145)
--- NOTE | 2021-11-05 19:48 | NUR ---
SHIFT SUMMARY PT A&O X4 AND IN PLEASENT MOOD T/O SHIFT. PT RESTED IN BED T/O MOST OF SHIFT. REFUSED FOOD T/O THIS SHIFT, PT C/O N/V-MEDICATED PER EMAR. STEADY GAIT W/ AMBULATION. CALL LIGHT W/IN REACH. VSS. AWAITING PLACEMENT @ THIS TIME.
--- NOTE | 2021-11-06 17:46 | NUR ---
SHIFT SUMMARY PT A&O X4 AND IN PLEASENT MOOD T/O SHIFT. SPOKE W/ DR AND PT REGUARDING DC PLANNING, SNF VS HOME HEALTH PLACEMENT @ THIS TIME. MEDICATED T/O SHIFT FOR N/V. DRY HEAVING AND HICCUPS T/O SHIFT. VSS. CALL LIGHT W/IN REACH. WORKED W/ PT AND OT THIS SHIFT.
--- NOTE | 2021-11-07 04:45 | NUR ---
SHIFT SUMMARY ADMITTED FOR STROKE. FULL CODE. LEFT SIDED WEAKNESS. ON PLAVIX. SUPERVISED FEEDER. N/V REPORTED THIS SHIFT. HE PULLED HIS IV ON PREVIOUS SHIFT, IV REPLACED. [facility] PATIENT. PLAN WILL BE DC W/HH VS. PLACEMENT @ REHAB FACILITY. HIS URINE IS DARK ADAM AND HIS FLUID INTAKE IS POOR. HE IS IMPULSIVE AND SETS OFF HIS BED ALARM FREQUENTLY. HE IS CONTINENT W/A URINAL
[2021-11-07 05:18] LABS: CHOL/HDL RATIO 5.1; Cholesterol 164 mg/dL (50-200); HDL Cholesterol 32 mg/dL (>39); LDL/HDL RATIO 3.4; Low Density Lipoprotein Chol 108 mg/dL (0-110); Triglycerides 121 mg/dL (30-160); Very Low Density Lipoprot Chol 24 mg/dL (6-32)
--- NOTE | 2021-11-07 18:03 | NUR ---
SHIFT SUMMARY PATIENT IS ALERT AND ORIENTED X2. PATIENT WAS ADMITTED FOR STROKE. HX OF STROKE X9. PATIENT HAS LEFT SIDED WEAKNESS. PATIENT IS A SUPERVISED FEEDER AND IS ON A SOFT DIET. PATIENT HAS HAD NO ACUTE EVENTS THIS SHIFT. VITAL SIGNS REVIEWED. BED IN LOCKED AND LOWEST POSTIION. BED ALARM ON. PATIENT SETS OFF BED ALARM PATIENT IS IMPULSIVE. CALL LIGHT IN PLACE. WILL MONITOR UNTIL SHIFT CHANGE.
--- NOTE | 2021-11-08 00:30 | NUR ---
PAIN RX GIVEN PT STATES NECK PAIN. MEDICATED PER EMAR. PT STATES HE IS HAVING TROUBLE SLEEPING, MEDICATED PER EMAR
--- NOTE | 2021-11-08 05:28 | NUR ---
SHIFT SUMMARY ADMITTED FOR CVA. LEFT SIDED WEAKNESS. FULL CODE. PLAN IS FOR REHAB PLACEMENT VS. HOME W/HH. SUPERVISED BITE SIZE DIET. 1 ASSIST - BRP W/CRUTCHES, HE USES A URINAL. HIS URINE IS DARK, HE REFUSES TO DRINK MUCH WATER. TREATED FOR CHRONIC NAUSEA, AND ALSO NECK PAIN THIS SHIFT. [facility] PATIENT. HE IS COOPERATIVE WITH CARE. SPEECH IS GARBLED AND SLOW.
--- NOTE | 2021-11-08 19:31 | NUR ---
SHIFT SUMMARY- PT HAS HAD NO ACUTE CHANGES T/O THE SHIFT ALTHOUGH THIS EVENING HE HAD A LOT OF QUESTIONS THAT COULD BE ANSWERED BY CARE MANAGEMENT, THEY WERE NO LONGER AVAILABLE BY THE TIME THE PT STARTED ASKING THESE QUESTIONS. BEDSIDE REPORT COMPLETED WITH NIGHT RN NO S&S OF DISTRESS NOTED AT THE TIME OF SHIFT CHANGE, PT DID EAT A HALF OF AN EGG SALAD SANDWITCH AND WAS C/O NAUSEA AT SHIFT CHANGE NIGHT RN WILL MEDICATE.
--- NOTE | 2021-11-08 19:34 | NUR ---
ATTN SERVICE COUNSELOR- PT WAS ASKING THIS EVENING IF IT IS POSSIBLE FOR HIM TO BE DISCHARGED TO THE [facility] THE [place]. PT WAS ALSO ASKING QUESTIONS ABOUT BEING ABLE TO DISCHARGE HOME IF HE HAD A CITY SECRETARY CAREGIVER THERE. PT STATED HE MIGHT BE ABLE TO ARRANGE A CAREGIVER.
--- NOTE | 2021-11-09 00:38 | NUR ---
11/08/211954 PT LYING IN BED, REPORTS NAUSEA, GAVE ZOFRAN, WILL EVAL FOR EFFECT. NO OTHER APPARENT SIGNS OF DISTRESS. CALL LIGHT IS IN REACH.
--- NOTE | 2021-11-09 00:38 | NUR ---
11/08/21 2200 PT LYING IN BED, EYES CLOSED, APPEARS TO BE RESTING. BREATHING IS EVEN, UNLABORED. NO APPARENT SIGNS OF DISTRESS. CALL LIGHT IS IN REACH.
--- NOTE | 2021-11-09 00:39 | NUR ---
PT LYING IN BED, EYES CLOSED, APPEARS TO BE RESTING. BREATHING IS EVEN, UNLABORED. NO APPARENT SIGNS OF DISTRESS. CALL LIGHT IS IN REACH.
--- NOTE | 2021-11-09 02:33 | NUR ---
PT LYING IN BED, EYES CLOSED, APPEARS TO BE RESTING. BREATHING IS EVEN, UNLABORED. NO APPARENT SIGNS OF DISTRESS. CALL LIGHT IS IN REACH.
--- NOTE | 2021-11-09 05:11 | NUR ---
PT IS AAO X 4, ON RA. REPORTED NAUSEA, GOT ZOFRAN X 1. PT HAS SLIGHTLY SLURRED SPEECH AND SLIGHT WEAKNESS IN LIVE, THIS IS UNCHANGED FROM BEFORE.
--- NOTE | 2021-11-09 05:11 | NUR ---
0400 PT LYING IN BED, EYES CLOSED, APPEARS TO BE RESTING. WAKES EASILY TO VERBAL STIMULI. NO APPARENT SIGNS OF DISTRESS. CALL LIGHT IS IN REACH.
--- NOTE | 2021-11-09 06:10 | NUR ---
PT HAD ONLY URINATED ONCE THIS SHIFT AT HS ABOUT 250. PT AT FIRST DID NOT WANT A BLADDER SCAN BUT FINALLY AGREED TO ONE. NOT POST VOID BLADDER SCAN WAS 300, PT SAYS HE DOES NOT FEEL LIKE HE NEEDS TO VOID AT THIS TIME AND DOES NOT WANT TO TRY. HE ALSO STATES HE ABSOLUTELY DOES NOT WANT A STRAIGHT CATH. WILL CONTINUE TO MONITOR. PT DENIES NEED FOR ANYTHING ELSE AT THIS TIME. NO OTHER APPARENT SIGNS OF DISTRESS. CALL LIGHT IS IN REACH. NO OTHER CHANGES THIS SHIFT.
[2021-11-09] MEDS ORDERED: MELATONIN5 M1 PO (17:25)
[2021-11-09] MEDS ORDERED: ATOR40TA PO (17:25)
[2021-11-09] MEDS ORDERED: Nicoderm Cq1 EAC1 TOP (17:25)
[2021-11-09] MEDS ORDERED: CLOP75 PO (17:25)
[2021-11-09] MEDS ORDERED: MIRALAX17 GM PO (17:26)
--- NOTE | 2021-11-09 17:55 | NUR ---
DISCHARGE PATIENT TRANSPORTED VIA WHEELCHAIR TO PRIVATE VEHICLE. DISCHARGE INSTRUCTIONS EXPLAINED TO PATIENT. EDUCATED ABOUT HOME HEALTH AND NUMBERS GIVEN TO CALL. PATIENT STATED UNDERSTANDING. PACKET SENT WITH PATIENT. IV REMOVED WITHOUT DIFFICULTY. BELONGINGS SENT WITH PATIENT. MEDICATIONS FAXED TO PREFERRED PHARMACY. PATIENT TO CALL TO SCHEDULE FOLLOW UP APPOINTMENT.
== END 2021-11-09 17:49 | disposition home health service (06) | DRG 65 ==
LOC: ER 12:43 → MEDS 15:50
PROVIDERS: Internal Medicine; Student in an Organized Health Care Education/Training Program; ADMIT Internal Medicine
DX: I63.9 Cerebral infarction, unspecified (principal); I50.22 Chronic systolic (congestive) heart failure; I11.0 Hypertensive heart disease with heart failure; E87.6 Hypokalemia; F15.90 Other stimulant use, unspecified, uncomplicated; F11.90 Opioid use, unspecified, uncomplicated; F12.90 Cannabis use, unspecified, uncomplicated; I25.10 Atherosclerotic heart disease of native coronary artery without angina pectoris; Z95.1 Presence of aortocoronary bypass graft; Z98.890 Other specified postprocedural states; Z79.899 Other long term (current) drug therapy; I25.2 Old myocardial infarction; E78.00 Pure hypercholesterolemia, unspecified; K21.9 Gastro-esophageal reflux disease without esophagitis; Z86.73 Personal history of transient ischemic attack (TIA), and cerebral infarction without residual deficits; Z86.16 Personal history of COVID-19
CPT/HCPCS: 36415; 70450; 80048; 80053; 80061; 85025; 85610; 92526; 92610; 93005; 93010; 93306; 93880; 94760; 96374; 97110; 97112; 97116; 97163; 97166; 97530; 97535; 99285-25; A9270; C9113; G0480; J1650; J2405; J2765; J7030; J7120

== ENCOUNTER 2022-02-02 21:40 | Emergency (ER) | payer OTHER ==
[~2022-02-02] VITALS: Ht 170.2 cm; Wt 74.8 kg
[~2022-02-02 21:40] MED LIST changes: +ATOR40TA PO; +MELATONIN5 M1 PO; +MIRALAX17 GM PO
[2022-02-02 22:14] LABS: BASOPHILS ABSOLUTE AUTO 0.04 K/mm3 (0.00-0.23); BASOPHILS PERCENT AUTO 0 % (0-2); EOSINOPHILS ABSOLUTE AUTO 0.05 K/mm3 (0.00-0.68); EOSINOPHILS PERCENT AUTO 0 % (0-6); Hematocrit 50.4 % (37.0-53.0); IMMATURE GRAN ABSOLUTE AUTO 0.03 K/mm3 (0.00-0.10); IMMATURE GRAN PERCENT AUTO 0 % (0-1); LYMPHOCYTES ABSOLUTE AUTO 3.31 K/mm3 (0.84-5.20); LYMPHOCYTES PERCENT AUTO 24 % (21-46); MONOCYTES ABSOLUTE AUTO 1.17 K/mm3 (0.16-1.47); MONOCYTES PERCENT AUTO 9 % (4-13); Mean Corpuscular HGB 30.6 pg (26.0-34.0); Mean Corpuscular HGB Conc 33.7 g/dL (31.5-36.5); Mean Corpuscular Volume 91 fL (80-100); Mean Platelet Volume 10.3 fL (9.1-12.4); NEUTROPHILS ABSOLUTE AUTO 9.03 K/mm3 (1.96-9.15); NEUTROPHILS PERCENT AUTO 66 % (41-73); Platelet Count 249 K/mm3 (150-400); RDW Coefficient Variation 14.7 % (11.7-14.2); RDW Standard Deviation 49.5 fL (35.1-46.3); Red Blood Cell Count 5.55 M/mm3 (4.30-5.90); White Blood Cell Count 13.63 K/mm3 (4.00-11.30)
[2022-02-02 22:45] LABS: Albumin, Blood 2.7 g/dL (3.4-5.0); Albumin/Globulin Ratio 0.9 (0.8-1.8); Bilirubin, Total 0.7 mg/dL (0.1-1.0); Bun/Creatinine Ratio 20.5 (12.0-20.0); Creatinine, Blood 0.73 mg/dL (0.60-1.20); Globulin, Blood 2.9 g/dL (2.2-4.0); Potassium, Blood 2.9 mmol/L (3.5-5.5); Total Protein, Blood 5.6 g/dL (6.4-8.2)
[2022-02-03] MEDS ORDERED: K-Dur10 MEQ PO (00:18)
[2022-02-03] MEDS ORDERED: ONDA4ODT SL (00:25)
== END 2022-02-03 01:26 | disposition home or self-care (01) ==
LOC: ER 21:40
PROVIDERS: Emergency Medicine
DX: I48.91 Unspecified atrial fibrillation (principal); I25.10 Atherosclerotic heart disease of native coronary artery without angina pectoris; I69.954 Hemiplegia and hemiparesis following unspecified cerebrovascular disease affecting left non-dominant side; I69.928 Other speech and language deficits following unspecified cerebrovascular disease; I10 Essential (primary) hypertension; I25.2 Old myocardial infarction; F17.210 Nicotine dependence, cigarettes, uncomplicated; K21.9 Gastro-esophageal reflux disease without esophagitis; Z95.1 Presence of aortocoronary bypass graft; Z79.899 Other long term (current) drug therapy; Z79.82 Long term (current) use of aspirin; Z79.02 Long term (current) use of antithrombotics/antiplatelets
CPT/HCPCS: 70450; 71045; 80053; 85025; 93005; 93010; A9270; J2405; J7030

== ENCOUNTER 2022-05-31 07:20 | Emergency (ER) | payer OTHER ==
[~2022-05-31] VITALS: Ht 172.7 cm; Wt 68.0 kg
[~2022-05-31 07:20] MED LIST changes: +K-Dur10 MEQ PO; +ONDA4ODT SL
[2022-05-31 09:42] LABS: BASOPHILS ABSOLUTE AUTO 0.04 K/mm3 (0.00-0.23); BASOPHILS PERCENT AUTO 1 % (0-2); EOSINOPHILS ABSOLUTE AUTO 0.29 K/mm3 (0.00-0.68); EOSINOPHILS PERCENT AUTO 3 % (0-6); Hematocrit 44.1 % (37.0-53.0); Hemoglobin 14.7 g/dL (13.5-17.5); IMMATURE GRAN ABSOLUTE AUTO 0.01 K/mm3 (0.00-0.10); IMMATURE GRAN PERCENT AUTO 0 % (0-1); LYMPHOCYTES ABSOLUTE AUTO 2.72 K/mm3 (0.84-5.20); LYMPHOCYTES PERCENT AUTO 31 % (21-46); MONOCYTES PERCENT AUTO 10 % (4-13); Mean Corpuscular HGB 31.7 pg (26.0-34.0); Mean Corpuscular HGB Conc 33.3 g/dL (31.5-36.5); Mean Corpuscular Volume 95 fL (80-100); NEUTROPHILS ABSOLUTE AUTO 4.74 K/mm3 (1.96-9.15); NEUTROPHILS PERCENT AUTO 55 % (41-73); Platelet Count 221 K/mm3 (150-400); RDW Coefficient Variation 12.9 % (11.7-14.2); RDW Standard Deviation 45.7 fL (35.1-46.3); Red Blood Cell Count 4.63 M/mm3 (4.30-5.90)
[2022-05-31 09:50] LABS: Alanine Aminotransfer (ALT/SGP 16 U/L (12-78); Albumin, Blood 3.4 g/dL (3.4-5.0); Alk Phos 71 U/L (50-136); Anion Gap 4 mmol/L (6-16); Aspartate Aminotrans (AST/SGOT 11 U/L (12-37); Bilirubin, Total 0.5 mg/dL (0.1-1.0); Blood Urea Nitrogen 16 mg/dL (8-24); Bun/Creatinine Ratio 19.2 (12.0-20.0); CO2, Blood 29 mmol/L (21-32); Calcium, Blood 9.3 mg/dL (8.5-10.1); Chloride, Blood 108 mmol/L (98-108); Creatinine, Blood 0.83 mg/dL (0.60-1.20); Ethanol (Alcohol), Blood, Med <3 mg/dL; Globulin, Blood 3.4 g/dL (2.2-4.0); Glomerular Filtration Rate 100 (60-); Glucose, Blood 89 mg/dL (70-99); Potassium, Blood 3.8 mmol/L (3.5-5.5); Sodium, Blood 141 mmol/L (136-145); Total Protein, Blood 6.8 g/dL (6.4-8.2)
[2022-05-31] MEDS ORDERED: SILD50TA PO (12:08)
== END 2022-05-31 15:06 | disposition left against medical advice (07) ==
LOC: ER 07:20
PROVIDERS: Student in an Organized Health Care Education/Training Program
DX: I63.9 Cerebral infarction, unspecified (principal); R47.1 Dysarthria and anarthria; G83.9 Paralytic syndrome, unspecified; Z79.899 Other long term (current) drug therapy; Z79.82 Long term (current) use of aspirin; I10 Essential (primary) hypertension; I25.2 Old myocardial infarction; E78.00 Pure hypercholesterolemia, unspecified; I25.10 Atherosclerotic heart disease of native coronary artery without angina pectoris; M19.90 Unspecified osteoarthritis, unspecified site; F17.210 Nicotine dependence, cigarettes, uncomplicated
CPT/HCPCS: 70450; 70496; 70498; 80053; 82947; 83735; 85025; 93005; 93010; A9270; G0480; J3475; Q9967

== ENCOUNTER 2022-06-09 15:34 | Observation (INO) | payer OTHER ==
[~2022-06-09] VITALS: Ht 172.7 cm; Wt 67.5 kg
[~2022-06-09 15:34] MED LIST changes: +SILD50TA PO
[2022-06-09 16:43] LABS: BASOPHILS ABSOLUTE AUTO 0.03 K/mm3 (0.00-0.23); BASOPHILS PERCENT AUTO 0 % (0-2); EOSINOPHILS ABSOLUTE AUTO 0.17 K/mm3 (0.00-0.68); EOSINOPHILS PERCENT AUTO 2 % (0-6); Hematocrit 43.5 % (37.0-53.0); Hemoglobin 14.9 g/dL (13.5-17.5); IMMATURE GRAN ABSOLUTE AUTO 0.02 K/mm3 (0.00-0.10); IMMATURE GRAN PERCENT AUTO 0 % (0-1); LYMPHOCYTES ABSOLUTE AUTO 2.62 K/mm3 (0.84-5.20); LYMPHOCYTES PERCENT AUTO 37 % (21-46); MONOCYTES ABSOLUTE AUTO 0.54 K/mm3 (0.16-1.47); MONOCYTES PERCENT AUTO 8 % (4-13); Mean Corpuscular HGB 31.9 pg (26.0-34.0); Mean Corpuscular HGB Conc 34.3 g/dL (31.5-36.5); Mean Corpuscular Volume 93 fL (80-100); Mean Platelet Volume 10.5 fL (9.1-12.4); NEUTROPHILS PERCENT AUTO 53 % (41-73); Platelet Count 217 K/mm3 (150-400); RDW Coefficient Variation 12.3 % (11.7-14.2); RDW Standard Deviation 42.2 fL (35.1-46.3); Red Blood Cell Count 4.67 M/mm3 (4.30-5.90); White Blood Cell Count 7.18 K/mm3 (4.00-11.30)
[2022-06-09 17:05] LABS: Albumin, Blood 3.5 g/dL (3.4-5.0); Bilirubin, Total 0.6 mg/dL (0.1-1.0); Bun/Creatinine Ratio 23.5 (12.0-20.0); Creatinine, Blood 0.68 mg/dL (0.60-1.20); Globulin, Blood 3.4 g/dL (2.2-4.0); Potassium, Blood 3.9 mmol/L (3.5-5.5); Total Protein, Blood 6.9 g/dL (6.4-8.2)
--- NOTE | 2022-06-10 05:43 | NUR ---
SHIFT SUMMARY PT ON ADMIT HAD LEFT SIDED WEAKNESS AND SLURRING, BUT ATTRIBUTES THAT TO OLDER STROKES. WANTED TO EAT AND INSISTED HE WAS IN SPEECH TO PRACTICE SWALLING. THIS RN DID A BEDSIDE SWALLOW. PT TOLERATED PUDDING, APPLESAUCE AND WATER. PT ORDERED SELF CHEESEBURGER AND ATE MOSTLY FRIEND. SLEPT REST OF THE NIGHT NO COMPLAINTS FOR PAIN NO FURTHER CHANGES IN NEURO STATUS. BED IN LOWEST POSITION AND CALL LIGHT IN REACH
--- NOTE | 2022-06-10 12:00 | NUR ---
US tech Damaris Benito called to report results of the US study. 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
--- NOTE | 2022-06-10 13:02 | NUR ---
SANDRA'S FRIEND ASHLEE REDD IS AT BEDSIDE. SHE ASKS TO TAKE PT IN A WHEELCHAIR OUT OF THE BUILDING TO GET SOME FRESH AIR. DISCUSSED WITH CHARGE NURSE, AND RN EDUCATED PT AND FRIEND THAT OUR POLICY IS THAT PT NEEDS TO STAY ON THE THIRD FLOOR, AND NOT LEAVE THE BULDING DUE TO TELEMETRY AND IV ACCESS. FRIEND AND PT STATE THAT THEY UNDERSTAND.
--- NOTE | 2022-06-10 18:42 | NUR ---
SANDRA HAD A LABILE PERSONALITY - AT TIMES PLEASANT, AT TIMES TELLING THE RN "YOU CAN'T KEEP ME HERE" WHEN PT WANTED TO LEAVE THE BUILDING, AND RN WAS EDUCATING REGARDING THE POLICY OF STAYING INSIDE THE BUILDING DUE TO TELE AND IV'S. LEFT SIDED WEAKNESS. SPEECH IS SLOWED, AND SLURRED. EVERY DAY SMOKER, HAS A NICOTINE PATCH ON. IS AWARE OF THE SMOKE FREE CAMPUS AT [facility]. PT USES A CANE AND SBA FOR AMBULATING. HE CAN AMBULATE TO THE BATHROOM. HIS INDEPENDENCE IS VERY IMPORTANT TO HIM, AND HE CAN BECOME FIXATED ON THINGS THAT HE CAN'T ALWAYS HAVE (IE. LEAVING THE BUILDING). PHYSICAL THERAPY WORKED WITH PT THIS AM. ROOM AIR. IV ACCESS TO RIGHT ARM. TELEMETRY ON, SINUS.
--- NOTE | 2022-06-11 05:25 | NUR ---
SPINNING LATHE OPERATOR SORAYA NOTIFIES STAFF FROM PT ROOM THAT PT WAS FOUND ON FLOOR AT END OF BED. THIS RN AND INSTALLATION SUPERINTENDENTFilemon HALL TO PT SIDE. PT LAYING ON L SIDE ON FLOOR AT END OF BED IN PUDDLE OF URINE HOLDING URINAL. PT ALERT LAYING ON FLOOR, C/O NECK, HEAD, AND L SHOULDER PAIN. WHEN ASKED HOW HE ENDED UP ON FLOOR AT END OF BED, PT STATES HE GOT TO END OF BED WITH URINAL TO TRY TO URINATE BETTER, STOOD UP, AND TOOK A FEW STEPS AROUND THE END OF THE BED. PT STATES HE "WENT" TOWARDS THE WALL AND HIT HIS HEAD. PT HAS L SIDED WEAKNESS AND LIMITED USE OF L ARM AND LIKELY DID NOT CATCH HIS FALL AT ALL. PT HEAD TENDER AND NECK TENDER. THIS RN HOLDS C-SPINE UNTIL C COLLAR MAY BE BROUGHT UP FROM ER REQUESTED BY THIS RN. OTHER STAFF CALLED TO HELP INCLUDING ACID BATH MIXER KAILYN AND VINAYAK.
--- NOTE | 2022-06-11 05:36 | NUR ---
ORDERS FROM DR CHAUDHARI TO PERFORM HEAD, NECK, SPINE CT
--- NOTE | 2022-06-11 05:36 | NUR ---
PT PLACED IN C-COLLAR AT 0525 BY THIS RN, STAFF ASSIST PT UP TO BED WITH LIFT WHILE THIS RN CALLED PROVIDER.
[2022-06-11 05:57] LABS: Anion Gap 7 mmol/L (6-16); Blood Urea Nitrogen 12 mg/dL (8-24); Bun/Creatinine Ratio 16.6 (12.0-20.0); CO2, Blood 25 mmol/L (21-32); Chloride, Blood 108 mmol/L (98-108); Creatinine, Blood 0.72 mg/dL (0.60-1.20); Glomerular Filtration Rate 104 (60-); Glucose, Blood 111 mg/dL (70-99); Phosphorus, Blood 2.9 mg/dL (2.5-4.9); Potassium, Blood 3.9 mmol/L (3.5-5.5); Sodium, Blood 140 mmol/L (136-145)
--- NOTE | 2022-06-11 07:44 | NUR ---
SHIFT SUMMARY PT PLEASANT THROUGHOUT SHIFT, AOX4, CALLED APPROPRIATELY UNTIL THIS AM WHEN UNWITNESSED FALL OCCURRED. NO ACUTE CHANGES TO NEURO ASSESSMENT. L FOREHEAD TENDER WITH FORMING HEMATOMA VISIBLE. NECK TENDER TO PALPATION OVER C-SPINE, PT IN C-COLLAR, CT HEAD, NECK, AND SPINE PERFORMED PER ORDERS, PENDING RESULTS. PT VERBALIZES UNDERSTANDING OF NEED TO CALL FOR ANY NEEDS AND TO NOT ATTEMPT TO GET OUT OF BED ON HIS OWN, PT STATES "NEVER AGAIN". PT GIVEN SOME TYLENOL PER ORDERS THIS AM FOR PAIN IN HEAD. ASKED TO HOLD OFF ON ANY OTHER ORAL INTAKE UNTIL CT SCAN HAS BEEN CLEARED. IV SALINE LOCKED. REPORT GIVEN TO ONCOMING RN.
--- NOTE | 2022-06-11 11:40 | NUR ---
DISCHARGE NOTE PT DISCHARGED TO HOME WITH HOME HEALTH WITH A FEMALE FRIEND. HE WAS TRANSPORTED TO HIS FRIENDS VEHICLE VIA WHEELCHAIR. HIS IV WAS REMOVED AND WNL. HE WAS PROVIDED WITH PT EDUCATION AND INSTRUCTIONS ABOUT PCP FOLLOW-UP. HE LEFT AMA AND THE APPORPRIATE PAPERWORK WAS COMPLETED. PROVIDER AWARE.
== END 2022-06-11 11:52 | disposition home health service (06) ==
LOC: ER 15:34 → MEDS 15:38 → ER 18:09 → MEDS 21:46
PROVIDERS: Physician Assistant; ADMIT Internal Medicine
DX: I63.9 Cerebral infarction, unspecified (principal); I11.0 Hypertensive heart disease with heart failure; E78.5 Hyperlipidemia, unspecified; I50.22 Chronic systolic (congestive) heart failure; F15.10 Other stimulant abuse, uncomplicated; F17.210 Nicotine dependence, cigarettes, uncomplicated; K21.9 Gastro-esophageal reflux disease without esophagitis; I73.9 Peripheral vascular disease, unspecified; I25.10 Atherosclerotic heart disease of native coronary artery without angina pectoris; Z95.1 Presence of aortocoronary bypass graft; Z79.82 Long term (current) use of aspirin; Z79.02 Long term (current) use of antithrombotics/antiplatelets; Z66 Do not resuscitate
CPT/HCPCS: 36415; 70450; 71046; 72125; 80053; 80069; 85025; 93005; 93010; 93880; 96372; 97116; 97161; 97530; A9270; G0378; J1650; J7030

== ENCOUNTER 2023-03-21 19:11 | Observation (INO) | payer OTHER ==
[~2023-03-21] VITALS: Ht 175.3 cm; Wt 71.0 kg
[2023-03-21 19:49] LABS: BASOPHILS ABSOLUTE AUTO 0.02 K/mm3 (0.00-0.23); BASOPHILS PERCENT AUTO 0 % (0-2); EOSINOPHILS ABSOLUTE AUTO 0.23 K/mm3 (0.00-0.68); EOSINOPHILS PERCENT AUTO 3 % (0-6); Hematocrit 45.1 % (37.0-53.0); Hemoglobin 15.5 g/dL (13.5-17.5); IMMATURE GRAN ABSOLUTE AUTO 0.02 K/mm3 (0.00-0.10); IMMATURE GRAN PERCENT AUTO 0 % (0-1); LYMPHOCYTES ABSOLUTE AUTO 2.98 K/mm3 (0.84-5.20); LYMPHOCYTES PERCENT AUTO 35 % (21-46); MONOCYTES ABSOLUTE AUTO 0.78 K/mm3 (0.16-1.47); MONOCYTES PERCENT AUTO 9 % (4-13); Mean Corpuscular HGB 31.4 pg (26.0-34.0); Mean Corpuscular HGB Conc 34.4 g/dL (31.5-36.5); Mean Corpuscular Volume 91 fL (80-100); Mean Platelet Volume 10.8 fL (9.1-12.4); NEUTROPHILS ABSOLUTE AUTO 4.49 K/mm3 (1.96-9.15); NEUTROPHILS PERCENT AUTO 53 % (41-73); Platelet Count 242 K/mm3 (150-400); RDW Coefficient Variation 12.3 % (11.7-14.2); RDW Standard Deviation 41.2 fL (35.1-46.3); Red Blood Cell Count 4.94 M/mm3 (4.30-5.90); White Blood Cell Count 8.52 K/mm3 (4.00-11.30)
[2023-03-21 20:05] LABS: International Normalized Ratio 1.04; Prothrombin Time Results 10.9 Sec (9.7-11.5)
[2023-03-21 20:11] LABS: Alanine Aminotransfer (ALT/SGP 20 U/L (12-78); Albumin, Blood 3.5 g/dL (3.4-5.0); Alk Phos 65 U/L (50-136); Anion Gap 4 mmol/L (6-16); Aspartate Aminotrans (AST/SGOT 24 U/L (12-37); Bilirubin, Total 0.6 mg/dL (0.1-1.0); Blood Urea Nitrogen 12 mg/dL (8-24); Bun/Creatinine Ratio 13.9 (12.0-20.0); CO2, Blood 28 mmol/L (21-32); Calcium, Blood 9.3 mg/dL (8.5-10.1); Chloride, Blood 109 mmol/L (98-108); Creatinine, Blood 0.86 mg/dL (0.60-1.20); Ethanol (Alcohol), Blood, Med <3 mg/dL; Globulin, Blood 3.6 g/dL (2.2-4.0); Glomerular Filtration Rate 99 (60-); Glucose, Blood 104 mg/dL (70-99); Sodium, Blood 141 mmol/L (136-145); Total Protein, Blood 7.1 g/dL (6.4-8.2)
[2023-03-22 05:56] LABS: BASOPHILS ABSOLUTE AUTO 0.03 K/mm3 (0.00-0.23); BASOPHILS PERCENT AUTO 0 % (0-2); EOSINOPHILS ABSOLUTE AUTO 0.25 K/mm3 (0.00-0.68); EOSINOPHILS PERCENT AUTO 3 % (0-6); Hematocrit 47.7 % (37.0-53.0); IMMATURE GRAN ABSOLUTE AUTO 0.02 K/mm3 (0.00-0.10); IMMATURE GRAN PERCENT AUTO 0 % (0-1); LYMPHOCYTES PERCENT AUTO 32 % (21-46); MONOCYTES ABSOLUTE AUTO 0.84 K/mm3 (0.16-1.47); MONOCYTES PERCENT AUTO 9 % (4-13); Mean Corpuscular HGB 30.8 pg (26.0-34.0); Mean Corpuscular HGB Conc 33.5 g/dL (31.5-36.5); Mean Corpuscular Volume 92 fL (80-100); Mean Platelet Volume 10.5 fL (9.1-12.4); NEUTROPHILS ABSOLUTE AUTO 5.37 K/mm3 (1.96-9.15); NEUTROPHILS PERCENT AUTO 56 % (41-73); Platelet Count 223 K/mm3 (150-400); RDW Coefficient Variation 12.3 % (11.7-14.2); RDW Standard Deviation 41.7 fL (35.1-46.3); Red Blood Cell Count 5.19 M/mm3 (4.30-5.90); White Blood Cell Count 9.61 K/mm3 (4.00-11.30)
[2023-03-22 06:32] LABS: Albumin, Blood 3.4 g/dL (3.4-5.0); Bilirubin, Total 0.7 mg/dL (0.1-1.0); Bun/Creatinine Ratio 13.3 (12.0-20.0); Calcium, Blood 9.1 mg/dL (8.5-10.1); Creatinine, Blood 0.9 mg/dL (0.60-1.20); Globulin, Blood 3.5 g/dL (2.2-4.0); Magnesium, Blood 2.2 mg/dL (1.6-2.4); Potassium, Blood 3.6 mmol/L (3.5-5.5); Total Protein, Blood 6.9 g/dL (6.4-8.2)
[2023-03-22 08:19] VITALS: BP 130/92
[2023-03-22 08:39] LABS: CHOL/HDL RATIO 3.8; Cholesterol 146 mg/dL (50-200); HDL Cholesterol 38 mg/dL (>39); LDL/HDL RATIO 2.2; Low Density Lipoprotein Chol 83 mg/dL (0-110); Triglycerides 126 mg/dL (30-160); Very Low Density Lipoprot Chol 25 mg/dL (6-32)
--- NOTE | 2023-03-22 15:18 | NUR ---
The patient is reporting his speech has returned to its baseline prior to this admission. However he reports he used to attend outpatient speech therapy at the [place] and he would like to have further outpatient speech therapy to improve his chronic speech impairment. He feels strongly that he will not be able to get ahold of his primary care physician to write an order for this and he requests an outpatient speech therapy order when he is discharged.
--- NOTE | 2023-03-22 15:55 | NUR ---
PT CHART REVIEWED FOR ADMISSION
--- NOTE | 2023-03-22 16:02 | NUR ---
SHIFT SUMMARY MR PISANO WAS ADMITTED FROM THE ER THIS MORNING WITH LEFT SIDED WEAKNESS. LEFT HAND MACHINE FORMER IS WEAKER THAN HIS RIGHT, LEFT FOOT PUSH/PULL IS WEAKER THAN RIGHT, LEFT SHOULDER SHRUG IS WEAKER THAN RIGHT. NO FACIAL DROOP. SLURRED SPEACH THAT PT SAID IS AT HIS BASELINE. HE HAS BEEN SEEN BY PHYSICAL THERAPY WHO SAID THAT HE IS AT HIS BASELINE. RECENT FALLS AT HOME. PT EDUCATED ON FALL RISK HERE IN THE HOSPITAL AND IT WAS REQUESTED OF HIM THAT HE CALL BEFORE GETTING UP. HE VOICED FRUSTRATION AND ANNOYANCE AT NOT BEING INDEPENDENT. HE REFUSED BED AND CHAIR ALARMS. OJ CHARGE NURSE DISCUSSED THIS WITH HIM ALSO. BEDSIDE ECHO DONE. AWAIING MRI. PT IS FRUSTRATED BECAUSE HE GOT AN MRI LAST YEAR AT THE [place] AND THE [employer]IS B[employer] C[employer] CEMENTER HERE AT [facility] IS FOLLOWING UP ON STENT HISTORY BEFORE DOING MRI. PT FRUSTRATED AT WAITING. TELEMETRY ON, SR, NO CALLS FROM RECONCILIATION ACCOUNTANT. DENIES PAIN OR SOB. BED LOW, CALL LIGHT IN REACH.
[2023-03-22] MEDS ORDERED: PANT20 PO (18:22)
--- NOTE | 2023-03-22 18:43 | NUR ---
DISCHARGE NOTE MR PISANO VERBALISED UNDERSTANDING OF WRITTEN AND VERBAL DISCHARGE INSTRUCTIONS. PIV REMOVED INTACT. PT HAD REMOVED TELEMETRY. PT SAID HE HAS SOMEONE COMING TO GIVE HIM A RIDE HOME. AWAITING RIDE. CLOTHING REQUESTED FROM [facility] FOR DISCHARGE.
[2023-03-22 19:20] VITALS: BP 142/94
--- NOTE | 2023-03-22 19:32 | NUR ---
1919 - I SPOKE TO MICHAEL DAY SHIFT RN - SHE REPORTED PT DC DONE. PT IS READY TO BE DC'D - UNABLE TO AFFORD A TAXI. I SPOKE TO JORGE MINER, NURSING PLASTICATOR - SHE OKAYED A NAGA TAXI. I SPOKE TO THE PT AND UPDATED HIM ON THE NAGA TAXI/SUNSHINE TO TAKE PT HOME. PT RELAYED HE LIVES AT [address] [place] [address]. I UPDATED MARYLIN WATTERS NOC SHIFT OF THE ABOVE. 1922 - I SPOKE TO DIANA MOSELEY, RELAYED NAGA TAXI, RELAYED F NUMBER, AND ADDRESS PER THE ABOVE. SHE RELAYED THEY WILL ARRIVE IN APPX 20 MINUTES TO THE ER LOBBY WAITING AREA. 1928 - I SPOKE TO YESSI WATTERS, AND FLOAT RN BRYAN, AND UPDATED WITH THE ABOVE INFORMATION. I RELAYED TO BRYAN, TO TAKE THE PT DOWN TO THE ER WAITING AREA VIA WHEELCHAIR AND UPDATED THE THE ER RN HEMATOLOGY THAT THIS PT WILL BE LEAVING VIA SUNSHINE TAXI (NAGA TAXI.) 1929 - PT TAKEN OUT VIA WHEELCHAIR TO ER. NOTIFIED STACY, ACC, AND RICKI COVINGTON OF DISCHARGE.
--- NOTE | 2023-03-22 20:20 | NUR ---
PT DISCHARGED HOME VIA TAXI AT 1930.
== END 2023-03-22 19:30 | disposition home or self-care (01) ==
LOC: ER 19:11 → MEDS 19:12 → ERHOLD 19:12 → MEDS 03-22 07:52
PROVIDERS: Emergency Medicine; Internal Medicine; ADMIT Student in an Organized Health Care Education/Training Program
DX: R53.1 Weakness (principal); I25.10 Atherosclerotic heart disease of native coronary artery without angina pectoris; Z66 Do not resuscitate; E78.5 Hyperlipidemia, unspecified; R47.81 Slurred speech; I25.2 Old myocardial infarction; Z86.73 Personal history of transient ischemic attack (TIA), and cerebral infarction without residual deficits; K21.9 Gastro-esophageal reflux disease without esophagitis; Z95.1 Presence of aortocoronary bypass graft
CPT/HCPCS: 70450; 70496; 70498; 71045; 80053; 80061; 82947; 83735; 85025; 85610; 85730; 93005; 93010; 93306; 96372; 97162; 99285-25; A9270; G0378; J1650; Q9967